=== PATIENT | male | born 1950 | race African-American/Black ===

== ENCOUNTER 2020-08-31 13:59 | Outpatient (REF) | payer OTHER, SELFPAY ==
[2020-08-31 15:04] LABS: Basophils Percent Auto 0.1 % (0-2); Eosinophils Percent Auto 0.1 % (0-4); Hematocrit 49.9 % (42-52); Hemoglobin 17.2 g/dl (14.0-18.0); Lymphocytes Absolute Auto 0.6 X10*3/uL (1.2-4.9); Lymphocytes Percent Auto 5.8 % (20-40); MANUAL DIFF FLAG SCAN; Mean Corpuscular HGB Conc 34.5 g/dl (31.0-36.0); Mean Corpuscular Hemoglobin 33.2 pg (27.0-33.0); Mean Corpuscular Volume 96.3 fL (80-98); Mean Platelet Volume 9.3 fL (9.4-12.4); Monocytes Absolute Auto 0.2 X10*3/uL (0.1-1.2); Monocytes Percent Auto 2.1 % (2-11); Neutrophils Absolute Auto 8.8 X10*3/uL (2.0-8.3); Neutrophils Percent Auto 90.9 % (45-73); Platelet Count 279 X10*3/uL (160-400); Red Blood Count 5.18 X10*6/uL (4.60-5.80); SCAN SMEAR FLAG 1; White Blood Count 9.7 X10*3/uL (4.8-10.8)
[2020-08-31 15:25] LABS: SLIDE REVIEW VERIFIED
[2020-08-31 15:33] LABS: Alanine Aminotransferase 32 U/L (0-40); Albumin Level 4.1 g/dL (3.5-5.0); Alkaline Phosphatase 121 U/L (39-117); Aspartate Amino Transferase 32 U/L (5-37); Bilirubin Direct 0.2 mg/dL (0.0-0.5); Bilirubin Total 0.6 mg/dL (0.0-1.0); Lipase 44 U/L (8-78); Total Protein 6.7 g/dL (6.5-8.0)
[2020-09-06 13:53] LABS: 6-TGN <50
[2020-09-06 13:54] LABS: 6-MMPN <500
== END 2020-08-31 14:00 | disposition home or self-care (01) ==
LOC: HO.LAB 13:59
PROVIDERS: PCP Physician Assistant Medical; Visit Provider Internal Medicine Gastroenterology
DX: K50.10 Crohn's disease of large intestine without complications (principal)
CPT/HCPCS: 36415; 80076; 83690; 85025

== ENCOUNTER 2021-08-11 14:35 | Emergency (ER) | payer OTHER, SELFPAY ==
--- NOTE | ~2021-08-11 | XR_ITS ---
EXAMINATION: XR CHEST CLINICAL INFORMATION: Hemoptysis COMPARISON: None TECHNIQUE: 2 views of the chest were obtained. FINDINGS: The heart does not appear enlarged. The thoracic aorta is tortuous. Hilar and mediastinal contours are otherwise unremarkable. There are increased markings in the right middle lobe suggestive of a pneumonia. There are postsurgical changes to the left hemithorax. There is question of a 4 mm nodule at the right lung base overlying the right anterior seventh and posterior ninth ribs. The lungs are otherwise clear. There is no pleural effusion or pneumothorax. There are degenerative changes of the spine. There are posttraumatic or postsurgical changes to the left posterior upper ribs. XR/XR chest 2V IMPRESSION: Increased markings in the right middle lobe probably representing pneumonia. Follow-up chest x-ray following treatment recommended. If there are no symptoms to suggest infection or x-ray finding fails to resolve, chest CT scan with IV contrast would be recommended. Question 4 mm right base pulmonary nodule. Postsurgical changes to the left hemithorax.
[2021-08-11 15:40] VITALS: BP 159/100; PULSE 94; RESP 20; TEMP 36.7; O2SAT 97; BMI 26.6
[2021-08-11 16:00] LABS: MANUAL DIFF FLAG NO
[2021-08-11 16:11] LABS: Basophils Percent Auto 0.1 % (0-2); Eosinophils Absolute Auto 0.1 X10*3/uL (0.0-0.4); Eosinophils Percent Auto 1.9 % (0-4); Hematocrit 37.1 % (42.0-52.0); Hemoglobin 13.2 g/dl (14.0-18.0); Imm Gran Abs Auto 0.02 X10*3/uL (0.00-0.03); Imm Gran Pct Auto 0.3 % (0.0-0.4); Lymphocytes Absolute Auto 2.1 X10*3/uL (1.2-4.9); Lymphocytes Percent Auto 31.5 % (20-40); Mean Corpuscular HGB Conc 35.6 g/dl (31.0-36.0); Mean Corpuscular Hemoglobin 34.4 pg (27.0-33.0); Mean Corpuscular Volume 96.6 fL (80.0-98.0); Mean Platelet Volume 9.5 fL (9.4-12.4); Monocytes Absolute Auto 0.4 X10*3/uL (0.1-1.2); Neutrophils Percent Auto 60.2 % (45-73); Platelet Count 347 X10*3/uL (160-400); Red Blood Count 3.84 X10*6/uL (4.60-5.80); Red Cell Distribution Width 13.3 % (11.0-16.0); White Blood Count 6.7 X10*3/uL (4.8-10.8)
[2021-08-11 16:20] LABS: Alanine Aminotransferase 17 U/L (0-40); Albumin Level 4.1 g/dL (3.5-5.0); Alkaline Phosphatase 93 U/L (39-117); Anion Gap 9 (12-20); Aspartate Amino Transferase 24 U/L (5-37); Bilirubin Total 0.4 mg/dL (0.0-1.0); Blood Urea Nitrogen 11 mg/dL (9-16); Calcium 9.8 mg/dL (8.4-10.2); Carbon Dioxide 28 mmol/L (22-29); Chloride 109 mmol/L (96-108); Creatinine Clr Calc Pharmacy 69.5; Estimated Glomerular Filt Rate > 60; Glucose Random 121 mg/dL (60-115); Potassium 4.3 mmol/L (3.3-5.1); Sodium 142 mmol/L (135-145); Total Protein 6.6 g/dL (6.5-8.0)
== END 2021-08-11 18:17 | disposition left against medical advice (07) ==
PROVIDERS: Emergency Provider Emergency Medicine; PCP Physician Assistant Medical
DX: R10.9 Unspecified abdominal pain (principal); R04.2 Hemoptysis; R05.9 Cough, unspecified
CPT/HCPCS: 36415; 71046; 80053; 85025; 99282; 99283

== ENCOUNTER 2021-08-12 13:04 | Emergency (ER) | payer OTHER, SELFPAY ==
[2021-08-12 14:02] VITALS: BP 143/87; PULSE 92; RESP 18; TEMP 36.6; O2SAT 100; BMI 26.6
--- NOTE | 2021-08-12 15:04 | ED.GENADULT ---
HPI - General Adult General Chief complaint: General Medical Stated complaint: upper abd pain Time Seen by Provider: 08/12/21 15:03 Source: patient and family (mother) Mode of arrival: ambulatory Limitations: no limitations History of Present Illness HPI narrative: Patient is a 70 year old male presenting to the emergency department today with a cough and upper back pain. Patient states that for the last few days, he has had a cough. Patient states that he was seen yesterday, and left before he got any of his results. Patient denies any dizziness, lightheadedness, abdominal pain, nausea, vomiting, fever, chills, blurry vision, double vision, loss of vision, chest pain, difficulty breathing, shortness of breath, back pain, night sweats, pain with urination, increased urinary frequency, increased urinary urgency, blood in his urine or stool, syncope or a near syncopal episode, recent trauma or falls, bowel incontinence, bladder incontinence, bowel retention, bladder retention, or any other complaints at this time. Patient states that he has a history of pneumonia and had a lobectomy of the left side. Onset (ago): day(s) Related Data Previous Rx's Medication Instructions Recorded amoxicillin 875 mg-potassium 1 tab PO BID 5 Days #10 tab 08/12/21 clavulanate 125 mg tablet azithromycin 250 mg tablet See Rx Instructions .ROUTE 08/12/21 .COMPLEX #6 tab Allergies Allergy/AdvReac Type Severity Reaction Status Date / Time Iodinated Contrast Media Allergy Hives Verified 08/12/21 14:11 [IV Contrast Dye] Review of Systems Constitutional: Constitutional: Reports no additional constitutional complaints, Denies chills, Denies fever(s) and Denies night sweats Eyes: Eyes: Reports no additional eye complaints, Denies blurry vision, Denies change in vision, Denies diplopia, Denies eye discharge, Denies loss of vision and Denies eye pain ENT: Denies dizziness Cardiovascular: Cardiovascular: Reports no additional cardiovascular complaints, Denies chest pain, Denies lightheadedness, Denies Loss of Consciousness and Denies dyspnea Respiratory: Respiratory: Reports no additional respiratory complaints, Reports cough and Denies dyspnea Gastrointestinal: Gastrointestinal: Reports no additional gastrointestinal complaints, Denies abdominal pain, Denies melena, Denies hematochezia, Denies change in bowel habits and Denies change in stool character Genitourinary: Genitourinary: Reports no additional male genitourinary complaints, Denies hematuria, Denies oliguria, Denies difficulty urinating, Denies dysuria, Denies urinary frequency, Denies urinary hesitancy, Denies urinary incontinence and Denies urinary urgency Musculoskeletal: Musculoskeletal: Reports no additional musculoskeletal complaints, Denies numbness and Denies tingling Neurologic: Denies dizziness, Denies loss of vision, Denies numbness and Denies tingling Psychiatric: Psychiatric: Reports no additional psychiatric complaints Endocrine: Endocrine: Reports no additional endocrine complaints Hematologic/Lymphatic: Hematologic/Lymphatic: Reports no additional hematologic/lymphatic complaints Allergic/Immunologic: Allergic/Immunologic: Reports no additional allergic/immunologic complaints [facility] Past Medical History Attestation statement: The following information was validated with the patient. Source: old records reviewed Medical History Crohn disease HTN (hypertension) Surgical History H/O lumpectomy Social History Social History Alcohol intake: current Alcohol intake frequency: holidays/special occasions only Patient Tobacco Use Status: Current everyday Tobacco user Use of substances other than those prescribed or required for medical reasons: No Advance Directives: No Advance Directives Information Provided: No Physical Exam ED Vital Signs: Vital Signs - 24 hr 08/12/21 14:02 08/12/21 15:17 Temperature 97.9 F 98.4 F Pulse Rate 92 96 Respiratory Rate 18 17 Blood Pressure 143/87 H 156/96 H Pulse Oximetry 100 98 BMI result Body Mass Index 26.6 Const General: cooperative, no acute distress, alert and awake Nutritional Appearance: well nourished Orientation/consciousness: patient oriented x3 Limitations: no limitations HENMT Head: Yes normal to inspection and Yes atraumatic Ears: hearing grossly normal bilaterally and external ears normal General nose exam: Normal external nose present, no nasal discharge noted and no epistaxis Face and sinus: Yes normal facial exam, No abrasion and No laceration Mouth: Normal oral and palatal mucosa present, no drooling and no muffled voice Eyes General: appearance normal, both eyes and all related structures Periorbital: periorbital findings normal Eyelids: Yes eyelids normal Conjunctivae: conjunctivae normal Pupils: Equal, round and reactive pupils present EOM: EOMs intact bilaterally Neck Neck: Yes normal visual inspection, Yes full ROM and Yes no lymphadenopathy Chest Chest palpation & inspection: normal inspection of the chest Resp Effort & Inspection: normal respiratory effort, able to speak in complete sentences and Actively coughing Quality: productive Cardio Rate: regular rate Rhythm: regular rhythm GI Inspection: Yes normal to inspection Neuro General: patient oriented x3 and moves all extremities Cranial nerves: Yes Equal, round and reactive pupils present Cognition (Neuro): normal cognition Motor exam (neuro): 5/5 motor strength present throughout Sensory Exam: Normal double simultaneous stimulation for sensation Coordination: [id number] test normal Extrem General: Yes normal to inspection, Yes full ROM and Yes capillary refill normal Psych Appearance: grossly normal Mental Status: mental status grossly normal Affect: normal affect Attitude: cooperative Thought process: Normal thought process present Thought content: Normal thought content present Insight: Good insight present (Psych) Medical Decision Making MDM Narrative Medical decision making narrative: Patient is a 70 year old male presenting to the emergency department today with a cough. Patient's physical exam was unremarkable. Patient's chest x-ray showed an acute right sided pneumonia. I explained my physical exam findings as well as all test results to the patient and the patient's mother. I answered all questions asked by the patient and the patient's mother. Patient prescribed Azithromycin and augmentin as recommended by most updated guidelines. I stressed the importance of the patient taking his medication as prescribed. I stressed the importance of the patient following up with his primary care provider. I stressed the importance of the patient returning to the emergency department immediately if his symptoms were to worsen or if he were to develop any dizziness, shortness of breath, difficulty breathing, chest pain, blurry vision, loss of vision, nausea, vomiting, abdominal pain, fever, chills, back pain, or any other complaints. Patient and the patient's mother verbalized agreement and understanding with this treatment plan and discharge. Differential Diagnosis Differential Diagnosis: Pneumonia, viral illness, cough Medical Records Medical records reviewed: Yes I reviewed the patient's medical records. Imaging Data Chest x-ray: Attestation: I personally reviewed and interpreted this imaging study as follows: Radiologist's impression: EXAMINATION: XR CHEST CLINICAL INFORMATION: Hemoptysis COMPARISON: None TECHNIQUE: 2 views of the chest were obtained. FINDINGS: The heart does not appear enlarged. The thoracic aorta is tortuous. Hilar and mediastinal contours are otherwise unremarkable. There are increased markings in the right middle lobe suggestive of a pneumonia. There are postsurgical changes to the left hemithorax. There is question of a 4 mm nodule at the right lung base overlying the right anterior seventh and posterior ninth ribs. The lungs are otherwise clear. There is no pleural effusion or pneumothorax. There are degenerative changes of the spine. There are posttraumatic or postsurgical changes to the left posterior upper ribs. XR/XR chest 2V IMPRESSION: Increased markings in the right middle lobe probably representing pneumonia. Follow-up chest x-ray following treatment recommended. If there are no symptoms to suggest infection or x-ray finding fails to resolve, chest CT scan with IV contrast would be recommended. Question 4 mm right base pulmonary nodule. Postsurgical changes to the left hemithorax. Dictated By: Sunshine Hernández MD Signed By: Electronically signed by Sunshine Hernández MD 08/11/21 6119 Discharge Plan Discharge Clinical Impression: Community acquired pneumonia Patient Disposition: Home, Self-Care Instructions: Community Acquired Pneumonia (DC) Prescriptions: New amoxicillin-pot clavulanate 875-125 mg tablet 1 tab PO BID 5 Days Qty: 10 0RF azithromycin 250 mg tablet See Rx Instructions .ROUTE .COMPLEX Qty: 6 0RF Rx Instructions: For 250 mg dose pack: take 500 mg today (day 1), then 250 mg for 4 days (days 2-5) Interventions: ED Discharge Assessment Last Done: 08/12/21 15:34 Discharge Date/Time: 08/12/21 15:42 Print Language: Vietnamese
[2021-08-12 15:17] VITALS: BP 156/96; PULSE 96; RESP 17; TEMP 36.9; O2SAT 98
== END 2021-08-12 15:42 | disposition home or self-care (01) ==
PROVIDERS: Emergency Provider Emergency Medicine Emergency Medical Services; PCP Physician Assistant Medical
DX: J18.9 Pneumonia, unspecified organism (principal); I10 Essential (primary) hypertension; F17.200 Nicotine dependence, unspecified, uncomplicated
CPT/HCPCS: 99283; 99284

== ENCOUNTER 2022-05-22 09:26 | Day surgery (SDC) | payer OTHER, SELFPAY ==
--- NOTE | 2022-05-21 13:43 | HO.ANESPROP2 ---
Documented by User: Nenita Fuentes NP 05/21/22 13:44 HPI - Anesthesia Eval Consult details Narrative: 71yo M for Colonoscopy [facility] Past Medical History Medical History (Updated 05/21/22 @ 14:20 by Laura Bustamante RN) Back pain COPD (chronic obstructive pulmonary disease) Crohn disease CVA (cerebral vascular accident) Depression Emphysema lung HTN (hypertension) Hypogonadism Plantar fibromatosis Surgical History Surgical History (Updated 05/21/22 @ 14:22 by Laura Bustamante RN) H/O lumpectomy History of lung surgery Hx of colonoscopy Social History Social History Alcohol intake: current Alcohol intake frequency: former alcohol drinker Patient Tobacco Use Status: Former Tobacco user Quit Date: 03/2022 Tobacco use type: Cigarette Use of substances other than those prescribed or required for medical reasons: Yes Substance Use Frequency: Daily Are you DNR?: No Advance Directives: No Advance Directives Information Provided: Yes Meds Allergies Allergy/AdvReac Type Severity Reaction Status Date / Time Iodinated Contrast Media Allergy Hives Verified 08/12/21 14:11 [IV Contrast Dye] Home Medications Medication Instructions Recorded Confirmed Last Taken Type Creon 05/21/22 Unknown History Symbicort 05/21/22 Unknown History adalimumab 40 mg/0.8 mL 40 mg subcut Q2W 05/21/22 05/21/22 Unknown History subcutaneous syringe kit (Humira) amlodipine 5 mg-benazepril 10 mg 1 cap PO DAILY 05/21/22 05/21/22 Unknown History capsule aspirin 81 mg tablet,delayed 81 mg PO DAILY 05/21/22 05/21/22 Unknown History release atorvastatin 80 mg tablet 80 mg PO DAILY 05/21/22 05/21/22 Unknown History clopidogrel 75 mg tablet 75 mg PO DAILY 05/21/22 05/21/22 Unknown History fluticasone propionate 93 1 spray intranasal BID 05/21/22 05/21/22 Unknown History mcg/actuation breath activated aerosol folic acid 1 mg tablet 1 mg PO DAILY 05/21/22 05/21/22 Unknown History multivitamin,jx-thkd-Hp-FA-min tab 05/21/22 Unknown History sildenafil 50 mg tablet 50 mg PO DAILY PRN Erectile 05/21/22 05/21/22 Unknown History Dysfunction thiamine HCl (vitamin B1) 100 mg 100 mg PO DAILY 05/21/22 05/21/22 Unknown History tablet (Vitamin B-1) Exam Exam Date and Time: May 21, 2022 1343 Assessment and Plan Assessment Anesthesia Assessment: Chart Reviewed Documented by User: Cecil Vang MD 05/22/22 16:34 HPI - Anesthesia Eval Consult details Narrative: 71yo M for Colonoscopy history of CVA with very slight right sided weakness PMFSH Past Medical History Medical History (Updated 05/21/22 @ 14:20 by Laura Bustamante, RN) Back pain COPD (chronic obstructive pulmonary disease) Crohn disease CVA (cerebral vascular accident) Depression Emphysema lung HTN (hypertension) Hypogonadism Plantar fibromatosis Functional capacity: independent ambulation Family History Family history of problems with anesthesia: No Surgical History Surgical History (Updated 05/21/22 @ 14:22 by Laura Bustamante, RN) H/O lumpectomy History of lung surgery Hx of colonoscopy History of Problems with Anesthesia: No Social History Social History Alcohol intake: current Alcohol intake frequency: former alcohol drinker Patient Tobacco Use Status: Former Tobacco user Quit Date: 03/2022 Tobacco use type: Cigarette Use of substances other than those prescribed or required for medical reasons: Yes Substance Use Frequency: Daily Are you DNR?: No Advance Directives: No Advance Directives Information Provided: Yes Meds Allergies Allergy/AdvReac Type Severity Reaction Status Date / Time Iodinated Contrast Media Allergy Hives Verified 08/12/21 14:11 [IV Contrast Dye] Home Medications Medication Instructions Recorded Confirmed Last Taken Type Creon 05/21/22 Unknown History Symbicort 05/21/22 Unknown History adalimumab 40 mg/0.8 mL 40 mg subcut Q2W 05/21/22 05/21/22 Unknown History subcutaneous syringe kit (Humira) amlodipine 5 mg-benazepril 10 mg 1 cap PO DAILY 05/21/22 05/21/22 Unknown History capsule aspirin 81 mg tablet,delayed 81 mg PO DAILY 05/21/22 05/21/22 Unknown History release atorvastatin 80 mg tablet 80 mg PO DAILY 05/21/22 05/21/22 Unknown History clopidogrel 75 mg tablet 75 mg PO DAILY 05/21/22 05/21/22 Unknown History fluticasone propionate 93 1 spray intranasal BID 05/21/22 05/21/22 Unknown History mcg/actuation breath activated aerosol folic acid 1 mg tablet 1 mg PO DAILY 05/21/22 05/21/22 Unknown History multivitamin,bo-ayrk-Nf-FA-min tab 05/21/22 Unknown History sildenafil 50 mg tablet 50 mg PO DAILY PRN Erectile 05/21/22 05/21/22 Unknown History Dysfunction thiamine HCl (vitamin B1) 100 mg 100 mg PO DAILY 05/21/22 05/21/22 Unknown History tablet (Vitamin B-1) Exam Airway Mallampati Class: IV TM Dist: >3cm Neck ROM: Full Partial: Lower Loose/Missing/Broken Teeth: Yes Heart: S1,S2 Lungs: b/l breath sounds Assessment and Plan Assessment Anesthesia Assessment: Anesthesia Plan Discussed Final Anesthetic Review Family History of Problems with Anesthesia: No History of Problems with Anesthesia: No NPO: Yes ASA Class: III Final Preanesthetic Review: Meds/Allgs Chart Reviewed, Consent Obtained/Reviewed and Anes Risks/Benef Reviewed Patient Risk: Intermediate Procedure Risk: Intermediate Anesthetic Plan Anesthetic Plan: MAC: Disposition: Standard PACU
[2022-05-22 09:54] VITALS: BP 131/95; PULSE 109; RESP 18; TEMP 36.8; O2SAT 97; BMI 25.8
[2022-05-22] MEDS: Lactated Ringers 1,000 ML 100 ML IVCONT (10:06)
--- NOTE | 2022-05-22 10:38 | MHC.SHP ---
Pre-Procedural Eval Section A Date of Service: 05/22/22 The patient is an INPATIENT: No Changes since office visit: No Cold of Flu in the past 2 weeks, No New Medical Problems, No Changes in Medication and No Patient answered all questions The History & Physical has been completed within 30 days and I have reviewed it.: Yes Section B Chief Complaint: crohns Allergies: Allergies Allergy/AdvReac Type Severity Reaction Status Date / Time Iodinated Contrast Media Allergy Hives Verified 08/12/21 14:11 [IV Contrast Dye] Plan I have reviewed the history and physical and performed a pertinent physical examination on my patient. No changes have occurred unless specified.
--- NOTE | 2022-05-22 11:10 | P.BOP_ITS ---
Brief Operative Note Date of Service: 05/22/22 Pre-op diagnosis: abnl ct crohns colitis Post-op diagnosis: same Procedure: colonoscopy Surgeon: Ismael Camilo Anesthesia: MAC Was an Splitting Machine Operator used for this Procedure?: No Estimated blood loss (mL): 5 Pathology: other Condition: stable Disposition: PACU
[2022-05-22 11:19] VITALS: BP 118/89; PULSE 98; RESP 17; TEMP 36.2; O2SAT 97
[2022-05-22 11:34] VITALS: BP 120/85; PULSE 98; RESP 18; TEMP 36.4; O2SAT 98
--- NOTE | 2022-05-22 11:44 | OP_ITS ---
SURGEON: Ismael Camilo MD INDICATIONS: Crohn disease and abnormal CT scan of the colon. PREOPERATIVE DIAGNOSIS: POSTOPERATIVE DIAGNOSIS: PROCEDURE PERFORMED: Colonoscopy to the terminal ileum with biopsy. ESTIMATED BLOOD LOSS: COMPLICATIONS: ANESTHESIA: Medications; monitored anesthesia care. ASSISTANTS: SPECIMENS: DESCRIPTION OF PROCEDURE: History and physical performed. The risks and benefits of the procedure were explained to the patient. Informed consent was obtained. The procedure was performed on 05/22/2022. A digital rectal exam was performed and was found to be normal. The Olympus pediatric videocolonoscope was introduced into the rectum and advanced to the cecum without difficulty. The cecum was identified by transillumination, palpation, and identification of ileocecal valve. Examination was performed. The scope was removed. He tolerated the procedure well and was taken to recovery in stable condition. FINDINGS: The terminal ileum was examined and appeared normal. This was explored for approximately 10 cm. Biopsies were obtained. There was no evidence of Crohn disease involving the terminal ileum. The visualized colonic mucosa was within normal limits. There was some stool coating mucosa in the right colon limiting the sensitivity examination for detection of small polyps. This was washed and suctioned. Two polyps were identified at about 75 cm. Both measured less than 5 mm and removed with biopsy forceps. There was no evidence of active Crohn disease. Biopsies were obtained from throughout the colon and approximately every 10 cm in all 4 quadrants. Retroflexed examination showed large internal hemorrhoids. IMPRESSION: 1. Colon polyps. 2. Crohn disease, large intestine. RECOMMENDATION: Follow up the biopsy results. MD CRYSTAL Cui/BRADLYL / [id number]
== END 2022-05-22 12:05 | disposition home or self-care (01) ==
PROVIDERS: PCP Physician Assistant Medical; Visit Provider Internal Medicine Gastroenterology
PROC: 0DJD8ZZ Inspection of Lower Intestinal Tract, Via Natural or Artificial Opening Endoscopic (ICD-10-PCS; CPT 45378; principal; 2022-05-22 10:40)
DX: K50.10 Crohn's disease of large intestine without complications (principal); R93.3 Abnormal findings on diagnostic imaging of other parts of digestive tract; D12.6 Benign neoplasm of colon, unspecified; K63.5 Polyp of colon; K64.8 Other hemorrhoids; K86.1 Other chronic pancreatitis; I10 Essential (primary) hypertension; J43.9 Emphysema, unspecified; Z86.73 Personal history of transient ischemic attack (TIA), and cerebral infarction without residual deficits; Z79.82 Long term (current) use of aspirin; Z79.899 Other long term (current) drug therapy
CPT/HCPCS: 45380; 88305

== ENCOUNTER 2022-05-23 13:53 | Outpatient (REF) | payer OTHER, SELFPAY ==
--- NOTE | ~2022-05-23 | US_ITS ---
EXAMINATION: US RETROPERITONEAL COMPLETE (RENAL) CLINICAL INFORMATION: Cyst of kidney. COMPARISON: MRI abdomen 02/20/2017. Ultrasound abdomen 01/03/2017. TECHNIQUE: Real-time imaging of the kidneys and bladder. FINDINGS: RIGHT KIDNEY: 11.3 x 5.7 x 4.9 cm (SAG x AP x TRV). The kidney is normal in size, contour, and echogenicity. Renal cortical thickness is normal. No calculi or focal parenchymal lesions. No hydronephrosis. LEFT KIDNEY: 11.7 x 6.0 x 4.6 cm (SAG x AP x TRV). The kidney is normal in size, contour, and echogenicity. Renal cortical thickness is normal. No renal calculi or hydronephrosis. An anechoic cyst in the lower pole measuring 1.8 x 1.6 1.8 cm and mid pole measuring 3.5 x 3.0 x 3.8 cm. BLADDER: Well distended. Bilateral ureteral jets are demonstrated. Prevoid bladder volume is 305.5 mL. Postvoid bladder volume is 7.4 mL. There are echogenic foci seen in the bladder. Prostate volume 23.7 mL. US/US retroperitoneal comp IMPRESSION: There are several cysts in the left kidney. No echogenic renal calculi or hydronephrosis. Tiny postvoid residual bladder volume measuring 7.4 mL. There are echogenic foci seen in the bladder.
== END 2022-05-23 13:54 | disposition home or self-care (01) ==
LOC: HO.US 13:53
PROVIDERS: Visit Provider Physician Assistant Medical
DX: N28.1 Cyst of kidney, acquired (principal)
CPT/HCPCS: 76770

== ENCOUNTER 2022-05-28 08:47 | Outpatient (REF) | payer OTHER, SELFPAY ==
--- NOTE | ~2022-05-28 | US_ITS ---
EXAMINATION: US ABDOMEN COMPLETE CLINICAL INFORMATION: Lower abdominal pain. COMPARISON: Ultrasound retroperitoneal complete (renal) 05/23/2022. MRI abdomen without contrast 02/20/2017. TECHNIQUE: Real-time imaging of the abdominal viscera. FINDINGS: PANCREAS: Normal. ABDOMINAL AORTA: The proximal, mid, and distal segments are normal in caliber. INFERIOR VENA CAVA: Visualized portions are normal. LIVER: The liver is normal in size. The liver contour is normal. Increased echogenicity. No focal hepatic lesion. There is no intrahepatic biliary duct dilatation seen. GALLBLADDER: Normal. The gallbladder is physiologically distended without evidence of stones, sludge, polyps, wall thickening or pericholecystic fluid. COMMON BILE DUCT: Normal in caliber measuring 0.4 cm in diameter. RIGHT KIDNEY: There is a 0.8 cm simple cyst in the medial interpolar region for which no imaging follow-up is recommended. There are multiple echogenic foci without shadowing nor twinkle artifacts, possibly representing vascular calcifications. No hydronephrosis or renal calculi. The kidney measures 11.5 cm in maximum dimension. LEFT KIDNEY: There is a 1.8 cm cyst in the mid to lower pole with thin internal septations. There is an additional 3.4 cm cyst in the midpole that is simple in appearance. Similar when compared to the right side there are multiple echogenic foci without shadowing nor twinkle artifact, possibly representing vascular calcifications. No hydronephrosis or renal calculi. The kidney measures 11.6 cm in maximum dimension. SPLEEN: Normal. The spleen measures 8.20 cm in maximum dimension. FREE FLUID: None. US/US abdomen complete IMPRESSION: 1. Nonspecific increased echogenicity of the liver parenchyma, which could be seen in the setting of hepatic steatosis or hepatocellular disease. Correlate with liver function tests. 2. There is a 1.8 cm cyst in the mid to lower pole of the left kidney with thin internal septations. 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 3. Multiple echogenic foci in both kidneys are nonspecific and could represent vascular calcifications. Attention on follow-up. 4. No hydronephrosis.
== END 2022-05-28 08:48 | disposition home or self-care (01) ==
LOC: HO.HMGCX 08:47
PROVIDERS: PCP Physician Assistant Medical; Visit Provider Physician Assistant Medical
DX: R10.30 Lower abdominal pain, unspecified (principal)
CPT/HCPCS: 76700

== ENCOUNTER 2025-05-05 12:39 | Day surgery (SDC) | payer OTHER, SELFPAY ==
--- NOTE | 2025-05-03 13:31 | HO.ANESPROP2 ---
Documented by User: Nenita Fuentes NP 05/03/25 13:32 HPI - Anesthesia Eval Consult details Narrative: 74yo M for Colonoscopy Plavix - hx cva PMFSH Past Medical History Medical History Latent tuberculosis Pancreatitis TIA (transient ischemic attack) (~2020) Pneumonia Opiate dependence Chronic sinusitis Hyperhidrosis CVA (cerebral vascular accident) Back pain Depression Plantar fibromatosis COPD (chronic obstructive pulmonary disease) Hypogonadism Emphysema lung Crohn disease HTN (hypertension) Family History Family history of problems with anesthesia: No Surgical History Surgical History Hx of colonoscopy History of lung surgery H/O lumpectomy History of Problems with Anesthesia: No Social History Social History Alcohol intake: current Alcohol intake frequency: former alcohol drinker Patient Tobacco Use Status: Former Tobacco user Tobacco use type: Cigarette Advance Directives: No Advance Directives Information Provided: Yes Meds Allergies Allergy/AdvReac Type Severity Reaction Status Date / Time Iodinated Contrast Media (IV Allergy Hives Verified 05/05/25 13:02 Contrast Dye) Home Medications ?Medication ?Instructions ?Recorded ?Confirmed ?Last Taken ?Type Symbicort inhalation DAILY 05/21/22 Unknown History atorvastatin 80 mg tablet 80 mg PO DAILY 05/21/22 05/03/25 Unknown History fluticasone propionate 93 1 spray intranasal BID PRN Allergy 05/21/22 05/03/25 Unknown History mcg/actuation breath activated Symptoms aerosol sildenafil 50 mg tablet 50 mg PO DAILY PRN Erectile 05/21/22 05/03/25 Unknown History Dysfunction adalimumab 40 mg/0.8 mL 40 mg subcut Q2W 05/03/25 05/03/25 Unknown History subcutaneous syringe kit (Humira) morphine 30 mg immediate release 30 mg PO TID 05/05/25 05/05/25 Unknown History tablet oxycodone 5 mg tablet 5 mg PO TID PRN Pain 05/05/25 05/05/25 Unknown History Assessment and Plan Assessment Anesthesia Assessment: Chart Reviewed Final Anesthetic Review Family History of Problems with Anesthesia: No History of Problems with Anesthesia: No Documented by User: Sunshine Santana MD 05/05/25 13:33 [facility] Past Medical History Medical History Latent tuberculosis Pancreatitis TIA (transient ischemic attack) (~2020) Pneumonia Opiate dependence Chronic sinusitis Hyperhidrosis CVA (cerebral vascular accident) Back pain Depression Plantar fibromatosis COPD (chronic obstructive pulmonary disease) Hypogonadism Emphysema lung Crohn disease HTN (hypertension) Surgical History Surgical History Hx of colonoscopy History of lung surgery H/O lumpectomy Social History Social History Alcohol intake: current Alcohol intake frequency: former alcohol drinker Patient Tobacco Use Status: Former Tobacco user Tobacco use type: Cigarette Advance Directives: No Advance Directives Information Provided: Yes Meds Allergies Allergy/AdvReac Type Severity Reaction Status Date / Time Iodinated Contrast Media (IV Allergy Hives Verified 05/05/25 13:02 Contrast Dye) Home Medications ?Medication ?Instructions ?Recorded ?Confirmed ?Last Taken ?Type Symbicort inhalation DAILY 05/21/22 Unknown History atorvastatin 80 mg tablet 80 mg PO DAILY 05/21/22 05/03/25 Unknown History fluticasone propionate 93 1 spray intranasal BID PRN Allergy 05/21/22 05/03/25 Unknown History mcg/actuation breath activated Symptoms aerosol sildenafil 50 mg tablet 50 mg PO DAILY PRN Erectile 05/21/22 05/03/25 Unknown History Dysfunction adalimumab 40 mg/0.8 mL 40 mg subcut Q2W 05/03/25 05/03/25 Unknown History subcutaneous syringe kit (Humira) morphine 30 mg immediate release 30 mg PO TID 05/05/25 05/05/25 Unknown History tablet oxycodone 5 mg tablet 5 mg PO TID PRN Pain 05/05/25 05/05/25 Unknown History Exam Airway Mallampati Class: III TM Dist: >3cm Neck ROM: Full Denture: Upper Partial: Lower Loose/Missing/Broken Teeth: Yes, Upper and Lower Heart: RRR Lungs: distant but clear Assessment and Plan Assessment Anesthesia Assessment: Anesthesia Plan Discussed Final Anesthetic Review NPO: Yes ASA Class: III Final Preanesthetic Review: Meds/Allgs Chart Reviewed, Consent Obtained/Reviewed and Anes Risks/Benef Reviewed Patient Risk: Intermediate Procedure Risk: Low Anesthetic Plan Anesthetic Plan: MAC: Disposition: Standard PACU
--- OUTSIDE RECORDS SUMMARY | 2025-05-03 14:15 | XMS_ITS | Encounter Summary ---
Author Organization [facility] Address [address] [facility] [address] [place] [address] Phone Care Team Providers Care Patch Press Operator Name Role Phone Yosi Handy Primary Care Provider +1- [phone] Encounter Details Date Type Department Care Team (Late st Contact Info) Description 01/10/2021 Procedure Pass [facility], Ct Scan - [address] [address] Social History Tobacco Use Types Packs/Day Years Used Date Smoking Tobacco: Former Cigarettes 1 45.9 0 07/01/1969 - 05/31/2015 Smokeless Tobacco: Never Alcohol Use Standard Drinks/Week Comments Yes 30 (1 standard drink = 0.6 oz pu re alcohol) Sex and Gender Information Value Date Recorded Sex Assigned at Male 06/03/2019 3:31 PM EST Legal Sex Male 3:12 PM EST Gender Identity Male 06/03/2019 3:31 PM EST Sexual Orientation Straight 06/03/2019 3: 31 PM EST documented as of this encounter Functional Status * Calculated C-SSRS Risk Score (Lifetime/Recent) Answer Date of Assessment Author No Risk Indicated 01/10/2021 2:18 PM EDT Efren Thompson CNP * [place] Suicide Severity Rating Scale (Screener/Recent Self-Report) Question Answer Date of Assessment Author 1. Wish to be (Past 1 Month) No 01/10/2021 2:18 PM EDT Efren Thompson CNP 2. Non-Specific Active Suicidal Thoughts (Past 1 Month) No 01/10/2021 2:18 PM EDT Efren Thompson CNP 6. Suicidal Behavior (Lifetime) No 01/10/2021 2:18 PM EDT Efren Thompson, MOO documented as of this encounter Plan of Treatment Not on file documented as of this encounter Visit Diagnoses Not on filedocumented in this encounter Care Teams Patch Press Operator Relationship Specialty Start Date End Date Yosi Handy PA [address] [place] [id number] PCP - General 06/03/19 documented as of this encounter Additional Source Comments The information contained in this document represents components of the legal health record. It is not the complete legal health record.[facility]
--- OUTSIDE RECORDS SUMMARY | 2025-05-03 14:15 | XMS_ITS | Encounter Summary ---
Author Organization [employer] Address [address] [facility] [address], [place] [address] Care Team Providers Care Mounter Hand Name Role Phone Unavailable Primary Care Provider Unavailabl e Encounter Details Date Type Department Care Team (Latest Contact Info) Description 08/10/2019 Abstract [facility] CONVERSIONS Dental, Provider, DDS Social History Tobacco Use Types Packs/Day Years Used Date Smoking Tobacco: Never Assessed Sex and Gender Information Value Date Recorded Sex Assigned at Male 04/30/2022 10:16 AM EDT Legal Sex Male 10:16 AM EDT Gender Identity Male 04/30/2022 10:16 AM EDT Sexual Orientation Straight 04/30/2022 10 :16 AM EDT documented as of this encounter Plan of Treatment Upcoming Encounters Date Type Department Care Team (Late st Contact Info) Description 06/01/2025 1:30 PM EST Office Visit [facility] ADULT DENTAL [address] [place] [address] Win Dorman documented as of this encounter Visit Diagnoses Not on filedocumented in this encounter
--- OUTSIDE RECORDS SUMMARY | 2025-05-03 14:15 | XMS_ITS | Encounter Summary ---
Author Organization [employer] Address [address] [place] [address] [address] [address] Care Team Providers Care Building Carpenter Name Role Phone Unavailable Primary Care Provider Unavailabl e Encounter Details Date Type Department Care Team (Latest Contact Info) Description 01/06/2021 Abstract [facility] CONVERSIONS Dental, Provider, DDS Social History [...] Description 06/01/2025 1:30 PM EST Office Visit [facility] ADULT DENTAL [address] [place] [address] Win Dorman documented as of this encounter Visit Diagnoses Not on filedocumented in this encounter
--- OUTSIDE RECORDS SUMMARY | 2025-05-03 14:15 | XMS_ITS | Encounter Summary ---
Author Organization [employer] Address [address] [facility] [address], [place] [address] Care Team Providers Care Barking Machine Feeder Name Role Phone Unavailable Primary Care Provider Unavailabl e Encounter Details Date Type Department Care Team (Latest Contact Info) Description 07/04/2018 Abstract [facility] CONVERSIONS Dental, Provider, DDS Social History Tobacco [...] Description 06/01/2025 1:30 PM EST Office Visit [facility] ADULT D[facility] [address] [place] [address] Win Dorman documented as of this encounter Visit Diagnoses Not on filedocumented in this encounter
--- OUTSIDE RECORDS SUMMARY | 2025-05-03 14:15 | XMS_ITS | Encounter Summary ---
Author Organization [facility] Address [address] [facility] [address] [place] [address] Phone Care Team Providers Care Nut Sorter Name Role Phone Yosi Handy Primary Care Provider +1- [phone] Encounter Details Date Type Department Care Team (Late st Contact Info) Description 01/10/2021 Procedure Pass [facility] [address] [place] [address] Social History Tobacco Use Types Packs/Day Years [...] 2:18 PM EDT Efren Thompson CNP * [place] Suicide Severity Rating Scale (Screener/Recent Self-Report) Question [...] on filedocumented in this encounter Care Teams Nut Sorter Relationship Specialty Start Date End Date Yosi Handy PA [address] [place] [address] PCP - General 06/03/19 documented as of this encounter Additional Source Comments The information contained in this document represents components of the legal health record. It is not the complete legal health record.[facility]
--- OUTSIDE RECORDS SUMMARY | 2025-05-03 14:16 | XMS_ITS | Clinical Summary ---
Author Organization [facility] Address [address] [id number] Phone Care Team Providers Care Hair Cutter Name Role Phone Yosi Handy Primary Care Provider +1- [phone] Allergies No known active allergies Medications azaTHIOprine (IMURAN) 50 mg tablet Take 150 mg by mouth daily. Active carboxymethylce llulose (REFRESH PLUS) 0.5 % Dpet Place 1 drop into each eye 4 (four) times a day. Active cyanocobalamin, vitamin B-12, 250 MCG tablet Take 500 mcg by mouth 2 (two) times a day. Active doxepin (SINEQUAN) 10 MG capsule Take 20 mg by mouth nightly at bedtime. Active fluticasone propionate (FLONASE) 50 mcg/actuation nasal spray 1 spray by Nasal route 2 (two) times a day. Active testosterone cypionate (DEPO-TESTOTERO NE) 100 mg/mL injection Inject 300 mg into the muscle every 14 (fourteen) days. Active albuterol 90 mcg/actuation inhaler Inhale 2 puffs into the lungs every 4 (four) hours as needed for wheezing. Active atorvastatin (LIPITOR) 80 MG tablet Take 1 tablet (80 mg total) by mouth nightly at bedtime. 30 tablet 01/11/2021 Active clopidogrel (PLAVIX) 75 mg tablet Take 1 tablet (75 mg total) by mouth daily. ONLY 20 days, this is a one time only rx. 20 tablet 01/12/2021 Active aspirin 81 MG EC tablet Take 1 tablet (81 mg total) by mouth daily. 30 tablet 01/11/2021 Active amLODIPine (NORVASC) 5 MG tablet Take 1 tablet (5 mg total) by mouth daily. 30 tablet 01/11/2021 Active Active Problems Problem Noted Date Diagnosed Date TIA (transient ischemic attack) 01/10/2021 Assessment & Plan (01/10/2021 7:31 PM EDT): Patient presented to the emergency department with right hand weakness with a funny sensation in his right upper extremity along with right facial droop. U tox positive for cannabis and buprenorphine. Chest x-ray revealed no acute abnormality. CT head/CT angio reveals no acute intracranial hemorrhage, evolved large tentorial infarct or mass-effect. Mild asymmetrical hypodensity of the left cerebral white matter tracts, likely sequela of chronic small vessel disease, less likely demyelinating process or infarct. No significant vascular abnormality. Tele-Stroke consulted from the emergency department who recommended admission for further stroke work-up and loading with Plavix 300 mg and aspirin and continuing. -Continue aspirin 81 mg daily in conjunction with 75 mg of Plavix. Patient will need to be continued on this regimen for 21 days, will need to discuss with neurology after MRI resulted about which medication to discontinue after the 21 days -Continue Lipitor 80 mg -Obtain lipid panel -Obtain a hemoglobin A1c -Obtain CRP, ESR, and TSH levels -PT/OT -Speech and swallow evaluation -MRI brain -Ultrasound of the carotids -Echocardiogram -Allow for permissive hypertension for the first 24 hours or until the MRI is resulted. If SBP is > 180 then would give clonidine prn. Bullous emphysema 06/05/2019 Assessment & Plan (01/10/2021 7:25 PM EDT): Status post partial lung resection and treated for COPD on albuterol MDI which will be continued Assessment & Plan (06/05/2019 12:40 PM EST): [facility] I have offered him follow-up in our pulmonary office, for which he would need [facility]. If he comes see us, I would like to obtain prior PFT, chest CT, pulmonary and thoracic [facility]. Repeat PFT and a 6-minute distance walk would be indicated. For now, I would continue Symbicort at the time of discharge. The addition of Spiriva could be considered based on physiologic testing and clinical course. Again depending on PFT and 6-MDW, he may be a candidate for pulmonary rehab. We should ensure that he is up-to-date with influenza and pneumococcal vaccinations. Crohn's disease 06/04/2019 Assessment & Plan (01/10/2021 7:25 PM EDT): He states he was on balsalazide but he was taken off as he felt this was not working. He mentions he has been on Azathioprine and possible starting Humira, Continue Azathioprine 150mg po daily Assessment & Plan (06/05/2019 12:35 PM EST): I would consider restarting Imuran at the time of discharge. He will need follow-up with GI. Assessment & Plan (06/05/2019 7:13 PM EST): h/o Crohn's disease, followed by Dr. Moran in [place] No GI complaints at present --Holding azathioprine, but can restart at discharge assuming no new infectious issues Family History Medical History Relation Comments Diabetes Father Heart disease Father Anxiety disorder Mother Depression Mother Hyperlipidemia Mother Hypertension Mother Lung disease Mother Relation Status Comments Father Mother Social History Tobacco Use Types Packs/Day Years Used Date Smoking Tobacco: Former Cigarettes 1 45.9 0 07/01/1969 - 05/31/2015 Smokeless Tobacco: Never Tobacco Cessation:Counseling Given: Yes Alcohol Use Standard Drinks/Week Comments Yes 30 (1 standard drink = 0.6 oz pu re alcohol) Education Answer Date Recorded Are you interested in more education? Not on gaby e 10/26/2022 Are you concerned about learning? Not on file 10/26/2022 No 10/26/2022 No 10/26/2022 Digital Access Answer Date Recorded No 11/21/2022 No 11/21/2022 No 11/21/2022 Reliable internet access at home? Not on file 11/21/2022 Device with a working camera? Not on file Sex and Gender Information Value Date Recorded Sex Assigned at Male 06/03/2019 3:31 PM EST Legal Sex Male 3:12 PM EST Gender Identity Male 06/03/2019 3:31 PM EST Sexual Orientation Straight 06/03/2019 3: 31 PM EST Last Filed Vital Signs Vital Sign Reading Time Taken Comments Blood Pressure 149/88 01/11/2021 11:53 AM EDT Pulse 71 01/11/2021 11:53 AM EDT Temperature 36.6 C (97.9 F) 01/11/2021 11:53 AM EDT Respiratory Rate 18 01/11/2021 11:53 AM EDT Oxygen Saturation 97% 01/11/2021 11:53 AM EDT Inhaled Oxygen Concentration - - Weight 83.9 kg (185 lb) 01/10/2021 6:23 PM EDT Height 170.2 cm (5' 7 ) 01/10/2021 2:16 PM EDT Body Mass Index 28.98 01/10/2021 2:16 PM EDT Plan of Treatment Health Maintenance Due Date Last Done Comments Adult Td,Tdap Booster 1952 DEPRESSION SCREENING 1964 SMOKING Hx and SMOKELESS TOBACCO SCREENING 1965 HEPATITIS C SCREENING 1970 ZOSTER VACCINES (1 of 2) 09/09/1971 COLOGUARD 1997 COLONOSCOPY 1997 COLORECTAL CANCER SCREENING 1997 FIT TEST 1997 FOBT 1997 SIGMOIDOSCOPY 1997 VIRTUAL COLONOSCOPY 1997 RSV VACCINE (1 - Risk 50-74 years 1-dose series) 2002 ABDOMINAL AORTIC ANEURYSM (AAA) SCREENING 2017 ALKALINE PHOSPHATASE LEVEL 01/11/202201/11, 01/10/2021, 06/04/2019, Additional history exists CREATININE LEVEL 01/11/2022 01/11/2021, , 06/05/2019, Additional history exists INFLUENZA VACCINE (#1) 2025 2, 05/06/2019, 05/23/2018, Additional history exists COVID-19 VACCINE ( season) 2025 06/06/2021, 09/10/2020, 08/13/2020 LIPID PANEL 01/11/2026 01/11/2021 PNEUMOCOCCAL VACCINES (50+ years) Completed 05/23/2018, 08/01/2015 HEPATITIS A VACCINES Aged Out No long er eligible based on patient's age to complete this topic HIB VACCINES Aged Out No longer eligi ble based on patient's age to complete this topic MENINGOCOCCAL VACCINES (ACWY) Aged Out No longer eligible based on patient's age to complete this topic MENINGOCOCCAL VACCINES (B) Aged Out N o longer eligible based on patient's age to complete this topic Medical Devices Not on file Procedures Procedure Name Priority Date/Time Associated Diagnosis Comments LIPID PANEL Routine 01/11/2021 5:19 AM EDT COMPREHENSIVE METABOLIC PANEL (CMP) Routine 01/11/2021 5:19 AM EDT from Last 3 Months or Most Recently Relevant to Health Maintenance Results * (ABNORMAL) Comprehensive metabolic panel (01/11/2021 5:19 AM EDT) SODIUM 139 133 - 146 mmol/L [facility] POTASSIUM 3.6 3.3 - 5.1 mmol/L [facility] CHLORIDE 105 96 - 108 mmol/L [facility] CO2 24 21 - 35 mmol/L [facility] BUN 7 6 - 19 mg/dL [facility] CREATININE 0.60 0.5 - 1.5 mg/dL [facility] GLUCOSE 87 70 - 99 mg/dL [facility] ALBUMIN 3.5(L) 3.9 - 4.8 g/dL [facility] TOTAL PROTEIN 5.7(L) 6.5 - 8.0 g/dL [facility] CALCIUM 8.6 8.4 - 10.3 mg/dL [facility] ALKALINE PHOSPHATASE 78 39 - 117 U/L [facility] TOTAL BILIRUBIN 0.5 0.0 - 1.2 mg/dL [facility] AST 18 0 - 37 U/L [facility] ALT 11 0 - 40 U/L [facility] GLOBULIN 2.2 1 - 4.8 g/dL [facility] EGFR 103 >59 mL/min/1.7 3m2 [facility] Comment:Estimated glomerular filtration rate calculated using the CKD-EPI equation. ANION GAP 14 10 - 20 mmol/L [facility] Blood 01/11/2021 5:19 AM EDT 01/11/2021 6:50 AM EDT Perry Chavez PA-C LAB BLOOD BKR ORDERABLES Cynthia l Result Performing Organization Address [facility] [place]/[facility] Co de Phone Number [address] [address] * (ABNORMAL) Lipid panel (01/11/2021 5:19 AM EDT) HDL 52 mg/dL [facility] Comment: Interpretation <40 mg/dL: Low HDL cholesterol (major risk factor for CHD) Greater than or equal to 60 mg/dL: High HDL cholesterol ( negative risk factor for CHD) HDL - cholesterol is affected by a number of factors, e.g. smoking, excerise, hormones, sex and age. CHOLESTEROL 208 0 - 240 mg/dL [facility] TRIGLYCERIDES 111 30 - 160 mg/dL [facility] LDL 134(H) 50 - 129 mg/dL [facility] Comment: LDL levels in terms of risk for coronary heart disease: <100 mg/dL: Optimal 100-129 mg/dL: Near or above optimal 130-159 mg/dL: Borderline high 160-189 mg/dL: High >190 mg/dL: Very High CARDIAC RISK RATIO 4.0 3.4 - 5.0 C [facility] Blood 01/11/2021 5:19 AM EDT 01/11/2021 6:50 AM EDT Perry Chavez PA-C LAB BLOOD BKR ORDERABLES Cynthia l Result Performing Organization Address [facility] [place]/[facility] Co de Phone Number [address] [address] from Last 3 Months or Most Recently Relevant to Health Maintenance Insurance [facility] SAFETY NET FULL MEDICARE A Member Subscriber Plan / Payer (Ef fective 2017-Present) Name:LolyMayco contreras Member ID:[id number] Relation to Subscriber:Self Name:Lolyben Mayco Subscriber ID:[id number] Payer ID:[id number] Group ID:Not on file Type:Medicare Address: [employer] [facility] [address] [address] [place] [address] [facility] SAFETY NET FULL [place]IC[place] [address] [address] Member Subscriber Plan / Payer (Ef fective 2019-Present) Name:Umesh Ortizdy Relation to Subscriber:Self Name:Diana Mayco Payer ID:[id number] (NAIC) Group ID:Not on file Type:Indemnity Address: [facility] [address] FULL MEDICARE A [facility] Member Subscriber Plan / Payer (Ef fective 2019-Present) Name:Mayco Ortiz Relation to Subscriber:Self Name:Mayco Ortiz Payer ID:[id number] (NAIC) Group ID:Not on file Type:Indemnity Address: [facility] [employer] [id number] FULL MEDICARE A [facility]WORK HEALTH SAFETY NET FULL MEDICARE A COMMUNITY [facility] HEALTH SAFETY NET FULL MEDICARE [facility] Address: [facility] [id number] [place] [address] [place] [address] [place] [address] SAFETY NET FULL [place]IC[place] [address] [address] HEALTH SAFETY NET FULL MEDICARE A Advance Directives For more information, please contact: [phone] (9AM - 5PM [facility], Saturday-Saturday) * Full Code (Latest Code Status on File) Date Activated Date Inactivated Comments 01/10/2021 7:23 PM Question Answer Comments Code Status Confirmed With: Patient * Full Code (Confirmed) Date Activated Date Inactivated Comments 06/03/2019 9:43 PM 06/06/2019 2:48 PM Question Answer Comments Code Status Confirmed With: Patient Code Status Communicated To: Inpatient Attending Care Teams Hair Cutter Relationship Specialty Start Date End Date Yosi Handy PA [address] [place] [id number] PCP - General 06/03/19 Additional Source Comments The information contained in this document represents components of the legal health record. It is not the complete legal health record.[facility]
--- OUTSIDE RECORDS SUMMARY | 2025-05-03 14:16 | XMS_ITS | Encounter Summary ---
Author Organization [facility] Address [address] [facility] [address] [place] [address] Phone Care Team Providers Care Mine Foreman Name Role Phone Yosi Handy Primary Care Provider +1- [phone] Encounter Details Date Type Department Care Team (Late st Contact Info) Description 01/11/2021 Procedure Pass Non-Invasive Cardiology [address] [place] [address] Social History Tobacco Use Types Packs/Day Years [...] PM EST documented as of this encounter Plan of Treatment Not on file documented as of this encounter Visit Diagnoses Not on filedocumented in this encounter Care Teams Mine Foreman Relationship Specialty Start Date End Date Yosi Handy PA [address] [place] [address] PCP - General 06/03/19 documented as of this encounter Additional Source Comments The information contained in this document represents components of the legal health record. It is not the complete legal health record.[facility]
--- OUTSIDE RECORDS SUMMARY | 2025-05-03 14:16 | XMS_ITS | Clinical Summary ---
Author Organization [facility] Address [address] [facility] [address] [place] [address] Care Team Providers Care Tie Buyer Name Role Phone Unavailable Primary Care Provider Unavailabl e Allergies Active Allergy Reactions Criticality Noted Date Comments Iodinated Contrast Media Itching 09/11/2013 Iodine 02/21/2024 Medications Adalimumab-bwwd 40 MG/0.8ML solution auto-injector Inject under the skin. 4 Active albuterol 108 (90 Base) MCG/ACT inhaler Inhale. 5 Active amLODIPine (Norvasc) 5 MG tablet Take 5 mg by mouth Once per day. 1 Active Aspirin 81 MG capsule Take 81 mg by mouth. 2 Active atorvastatin (Lipitor) 80 MG tablet See Instructions, 1 tablet By Mouth Daily, 5 Refills, Maintenance, 12/02/23 16:18:00 EDT, Tablet, Partial fill upon patient request if the prescription is for a schedule II opioid drug. 4 Active buPROPion XL (Wellbutrin XL) 300 MG 24 hr tablet Take 300 mg by mouth Once per day. 5 Active fluticasone (Flonase) 50 MCG/ACT nasal spray Administer into affected nostril(s). 5 Active morphine CR (MS Contin) 15 MG 12 hr tablet Take 15 mg by mouth. 5 Active oxyCODONE (Roxicodone) 5 MG immediate release tablet Take 5 mg by mouth. 4 Active topiramate (Topamax) 200 MG tablet Take 200 mg by mouth. Active venlafaxine XR (Effexor XR) 150 MG 24 hr tablet Take 150 mg by mouth Once per day. Active Active Problems No known active problems Encounters Date Type Department Care Team Description 04/22/2025 Telephone [facility] [address] [place] [address] Win Dorman from Last 3 Months Social History Tobacco Use Types Packs/Day Years Used Date Smoking Tobacco: Every Day Cigarettes Passive Smoke Exposure: Never Smokeless Tobacco: Never Tobacco Cessation:Ready to Q uit: Not Asked; Counseling Given: Not Answered Alcohol Use Standard Drinks/Week Comments Not Currently 0 (1 standard drink = 0.6 oz pur e alcohol) Sex and Gender Information Value Date Recorded Sex Assigned at Male 04/30/2022 10:16 AM EDT Legal Sex Male 10:16 AM EDT Gender Identity Male 04/30/2022 10:16 AM EDT Sexual Orientation Straight 04/30/2022 10 :16 AM EDT Last Filed Vital Signs Vital Sign Reading Time Taken Comments Blood Pressure 114/64 11/24/2024 2:10 PM EDT Pulse 65 11/24/2024 2:10 PM EDT Temperature - - Respiratory Rate - - Oxygen Saturation - - Inhaled Oxygen Concentration - - Weight - - Height - - Body Mass Index - - Plan of Treatment Upcoming Encounters Date Type Department Care Team (Late st Contact Info) Description 06/01/2025 1:30 PM EST Office Visit [facility] [address] [place] [address] Win Dorman Health Maintenance Due Date Last Done Comments CT Colonography 1952 Colonoscopy 1952 Colorectal Cancer Screening 1952 Dental X-Ray: Full Mouth 1952 Depression Screening 1952 FIT DNA/Cologuard 1952 FIT 1952 FOBT 1952 Lipid Panel 1952 SDOH Screening 1952 Sigmoidoscopy 1952 Alcohol/Substance Use Screening 1964 Hepatitis C Screening 1970 Hepatitis A Vaccines (1 of 2 - Risk 2-dose series) 09/09/1971 Hepatitis B Vaccines (1 of 3 - Risk 3-dose series) 2012 RSV Patients and Patients Aged 60 years or older (1 - Risk 60-74 years 1-dose series) 2012 Dental Oral Exam 04/03/2024 10/02/2023, 03/2022, 01/04/2021, Additional history exists Dental X-Ray: Bitewings 02/21/2025 02/21/20, 12/19/2023, 12/05/2023 COVID-19 Vaccine ( season) 2025 10/18/2021, 06/06/2021, 09/10/2020, Additional history exists Influenza Vaccine (#1) 2025 , 05/02/2022, 04/05/2022, Additional history exists Dental Prophylaxis 05/28/2025 11/24/2024, 1 07/26/2023, 10/02/2023, Additional history exists Tobacco Screening 11/24/2025 11/24/2024 DTaP/Tdap/Td Vaccines (3 - Td or Tdap) 03/03/2031 03/03/2021, 11/13/2010 Pneumococcal Vaccine: 50+ Years Completed 05/23/2018, 08/01/2015, 11/13/2010, Additional history exists Zoster Vaccines Completed 01/26/2020, 08/06/2019 HIB Vaccines Aged Out No longer eligi ble based on patient's age to complete this topic HPV Vaccines Aged Out No longer eligi ble based on patient's age to complete this topic IPV Vaccines Aged Out No longer eligi ble based on patient's age to complete this topic Meningococcal B Vaccine Aged Out No l onger eligible based on patient's age to complete this topic Meningococcal Vaccine Aged Out No lisa daryn eligible based on patient's age to complete this topic RSV under 20 months Aged Out No longe r eligible based on patient's age to complete this topic Rotavirus Vaccines Aged Out No longer eligible based on patient's age to complete this topic Procedures Procedure Name Priority Date/Time Associated Diagnosis Comments PROPHYLAXIS - ADULT Routine 11/24/2024 2 :00 PM EDT BITEWING - SINGLE RADIOGRAPHIC IMAGE Routine 02/21/2024 8:30 AM EDT PERIODIC ORAL EVALUATION - ESTABLISHED PATIENT Routine 10/02/2023 3:00 PM EDT from Last 3 Months or Most Recently Relevant to Health Maintenance Insurance DENTAL - [employer]
--- OUTSIDE RECORDS SUMMARY | 2025-05-03 14:16 | XMS_ITS | Encounter Summary ---
Author Organization [facility] Address [address] [facility] [address] [place] [address] Phone Care Team Providers Care Sales Account Leader Name Role Phone Yosi Handy Primary Care Provider +1- [phone] Encounter Details Date Type Department Care Team (Late st Contact Info) Description 01/10/2021 Procedure Pass [facility], [address] [address] Social History Tobacco Use Types Packs/Day Years [...] 2:18 PM EDT Efren Thompson CNP * [place] Suicide Severity Rating Scale (Screener/Recent Self-Report) Question [...] on filedocumented in this encounter Care Teams Sales Account Leader Relationship Specialty Start Date End Date Yosi Handy PA [address] [place] [id number] PCP - General 06/03/19 documented as of this encounter Additional Source Comments The information contained in this document represents components of the legal health record. It is not the complete legal health record.[facility]
--- OUTSIDE RECORDS SUMMARY | 2025-05-03 14:16 | XMS_ITS | Encounter Summary ---
Author Organization [facility] Address [address] [facility] [address] [place] [address] Phone Care Team Providers Care Casing Grader Name Role Phone Yosi Handy Primary Care Provider +1- [phone] Encounter Details Date Type Department Care Team (Late st Contact Info) Description 01/10/2021 Procedure Pass [facility], Ct Scan - [address] [address] Social History Tobacco Use Types Packs/Day Years [...] 2:18 PM EDT Efren Thompson CNP * [place] Suicide Severity Rating Scale (Screener/Recent Self-Report) Question [...] on filedocumented in this encounter Care Teams Casing Grader Relationship Specialty Start Date End Date Yosi Handy PA [address] [place] [address] PCP - General 06/03/19 documented as of this encounter Additional Source Comments The information contained in this document represents components of the legal health record. It is not the complete legal health record.[facility]
--- OUTSIDE RECORDS SUMMARY | 2025-05-03 14:17 | XMS_ITS | Patient Health Record ---
Author Organization [facility] Address [address] [facility] [place] [address] Care Team Providers Care Licensed Vocational Nurse Name Role Phone Yosi Handy Primary Care Provider Malika e Ismael Camilo Jr Unavailable Allergies No Known Allergies Reason For Referral Referring Provider First Name Yosi Referring Provider Last Name Handy Referred Organization [facility] Referred Provider Ismael Camilo Jr Referred Address [address],[place], [place],[address],[place] Referred Provider Specialty Gastroentero logy General Notes faxed request to ct for authorization request on 09-30-2024 Referral Priority Routine Referring Provider First Name Yosi Referring Provider Last Name Handy Referred Organization [facility] Referred Provider Ismael Camilo Jr Referred Address [address] [place] [address],[facility],[place], [place],[address],[place] Referred Provider Specialty Gastroentero logy Referral Priority Routine Medications Medication SIG (Take, Route, Frequency, Duration) Notes Start Date End Date Status predniSONE 10 MG 4 tablets daily for 7 days then taper by 10 mg weekly. Orally Once a day; Duration: 30 days 04/14/2025 Active Creon 20 66.4-20-75 MU as directed Orally Active Humira Pen 40 MG/0.8ML 1 injection Subcutaneous every 2 weeks; Duration: 30 days 09/16/2020 Active azaTHIOprine Active Vitamin B-1 100 MG 1 tablet Orally Once a day; Duration: 30 day(s) Active Multivitamin & Mineral - as directed Orally Active Carboxymethylcellulose Sodium Unknown Clopidogrel Bisulfate 75 MG 1 tablet Ora lly Once a day; Duration: 30 day(s) Active Atorvastatin Calcium 80 MG 1 tablet Oral ly Once a day; Duration: 30 day(s) Active amLODIPine Besy-Benazepril H Cl 5-10 MG as directed Orally Active Aspir-Low 81 MG 1 tablet Orally Once a day; Duration: 30 day(s) Active Fluticasone Propionate 93 MCG/ACT 1 spray in each nostril Nasally NEEDED Active Sildenafil Citrate 50 MG 1 tablet as nee ded Orally Once a day Active Folic Acid 1 MG 1 tablet Orally Once a day; Duration: 30 day(s) Active Symbicort Active Immunizations Vaccine Route Administration Date Status Comme nts Influenza Unknown 04/10/2018 Administered Influenza Unknown 03/01/2019 Administered Influenza Unknown 03/31/2021 Administered Influenza Unknown 05/02/2022 Administered Influenza Unknown 08/04/2020 Refused Influenza Unknown 05/01/2023 Refused Influenza Unknown 10/28/2024 Refused Influenza Unknown 04/14/2025 Refused Social History Tobacco Use: Social History Observation Description Date Details (start date - stop date) Current Smoker NA - NA Tobacco Use/Smoking Question Answer Notes Patient is a current smoker AUDIT-C (Standard) Question Answer Notes Did you have a drink containing alcohol in the p ast year? No Points 0 Interpretation Negative Problems Problem Type SNOMED Code ICD Code Onset Dates Problem Status W/U Status Risk Notes Problem Crohn's disease of large bowel (0357325) Crohn's disease of large intestine without complications (K50.10) Active confirmed Problem Crohn's disease of colon (05022585) Crohn's disease of colon (K50.10) Active confirmed Problem Family History of Cancer of Colon (Situation) (619645938) Family history of colon cancer (Z80.0) Active confirmed Problem Chronic pancreatitis (655018433) Chronic pancreatitis, unspecified pancreatitis type (K86.1) Active confirmed Problem Rash (622138485) Rash (R21) Active confirmed Vital Signs Temperature 97.5 degrees Fahrenheit 04/14/2025 Blood pressure diastolic 01 mm Hg 04/14/2025 Height 66 in 04/14/2025 Blood pressure systolic 001 mm Hg 04/14/2025 Weight 154.6 lbs 04/14/2025 BMI 24.95 kg/m2 04/14/2025 Encounters Encounter Location Date Provider Diagnosis [facility] [address] [facility] [place] [id number] 10/28/2024 Ismael Camilo Jr Crohn's disease of large intestine without complications K50.10 ; Chronic pancreatitis, unspecified pancreatitis type K86.1 and Rash R21 [facility] [address] [place] [address] 04/14/2025 Ismael Camilo Jr Crohn's disease of large intestine without complications K50.10 and Chronic pancreatitis, unspecified pancreatitis type K86.1 [facility] [address] [place] [address] 10/29/2024 Ismael Camilo Jr Assessments Encounter Date Diagnosis (ICD Code) Assessment Notes Treatment Notes Treatment Clinical Notes Section Notes 10/28/2024 Crohn's disease of large intestine without complications (ICD-10 - K50.10) We discussed Crohn's disease today. We recommend that he continue his present regimen. For his rash, he could follow-up with his primary care provider. He will follow-up in this office in 6 months. If he has problems with an exacerbation of Crohn's disease, he is advised to call. We discussed the long-term safety of Humira. 04/14/2025 Crohn's disease of large intestine without complications (ICD-10 - K50.10) We discussed his symptoms today. We recommended a course of prednisone for possible exacerbation of his Crohn's disease. He will start 40 mg daily and taper by 10 mg weekly. If his symptoms persist, stool studies will be obtained He is due for colonoscopy because of his history of polyps and longstanding history of Crohn's disease as well as his family history in his father. We discussed the procedure in detail today including risks and benefits. He understands these and agrees to proceed. He is advised to stop aspirin and clopidogrel 1 week before the procedure. He appears stable with respect to his chronic pancreatitis and will continue enzyme supplementation . 10/28/2024 Chronic pancreatitis, unspecified pancreatitis type (ICD-10 - K86.1) We discussed Crohn's disease today. We recommend that he continue his present regimen. For his rash, he could follow-up with his primary care provider. He will follow-up in this office in 6 months. If he has problems with an exacerbation of Crohn's disease, he is advised to call. We discussed the long-term safety of Humira. 04/14/2025 Chronic pancreatitis, unspecified pancreatitis type (ICD-10 - K86.1) We discussed his symptoms today. We recommended a course of prednisone for possible exacerbation of his Crohn's disease. He will start 40 mg daily and taper by 10 mg weekly. If his symptoms persist, stool studies will be obtained He is due for colonoscopy because of his history of polyps and longstanding history of Crohn's disease as well as his family history in his father. We discussed the procedure in detail today including risks and benefits. He understands these and agrees to proceed. He is advised to stop aspirin and clopidogrel 1 week before the procedure. He appears stable with respect to his chronic pancreatitis and will continue enzyme supplementation . 10/28/2024 Rash (ICD-10 - R21) We discussed Crohn's disease today. We recommend that he continue his present regimen. For his rash, he could follow-up with his primary care provider. He will follow-up in this office in 6 months. If he has problems with an exacerbation of Crohn's disease, he is advised to call. We discussed the long-term safety of Humira. Plan Of Treatment Pending Test Test Name Order Date LIVER PROFILE 09/11/2018 LIVER PROFILE 04/03/2019 LIVER PROFILE 12/17/2019 LIPASE 09/11/2018 LIPASE 04/03/2019 LIPASE 12/17/2019 CBC w DIFF 12/17/2019 CBC w DIFF 01/14/2020 CBC w DIFF 04/03/2019 CBC w/o DIFF 09/11/2018 PROMETHEUS THIOPURINE METABOLITES (TPMT) 12/17/2019 PROMETHEUS THIOPURINE METABOLITES (TPMT) 01/14/2020 PROMETHEUS THIOPURINE METABOLITES (TPMT) 09/11/2018 PROMETHEUS TPMT ENZYME 09/11/2018 PROMETHEUS TPMT GENETICS 09/11/2018 Future Test Test Name Order Date COLONOSCOPY 09/28/2015 COLONOSCOPY 12/20/2016 COLONOSCOPY 03/12/2019 COLONOSCOPY 05/09/2022 COLONOSCOPY 04/14/2025 Next Appt Details Provider Name:Ismael dolan Jr, 05/05/2025 01:50:00 PM, [address] [place] [address] , [place], [place], [id number], Insurance Providers Payer Name Payer Address Payer Phone Subscriber Number Group Number Insured Name Patient Relationship to Insured Coverage Start Date Coverage End Date [place] [employer] [address] [place] [address] [phone] [id number] SAVAGEDY Self - patient is the insured Medical (General) History Medical History History ICD Code hypertension emphysema hyperhidrosis hypogonadism COPD plantar fibromatosis chronic sinusitis Crohn's disease, most recent colonoscopy 05/22, inactive disease on biopsy in ileum and rectum, tubular adenomas x2, three-year followup.. Diagnosis 2003, previously seen at the [facility] with reported involvement of the entire colon and terminal ileum. Previously treated with mesalamine/5-ASA medications, current therapy is Humira (started 01/13/21) and azathioprine. 05/22, not taking azathioprine, unclear when it was stopped. 05/23 reports restarting azathioprine 8 months ago, continues on Humira. depression back pain opiate dependence pneumonia 06/18 stroke/TIA December 2020 Latent tuberculosis status post treatmen t with Dr. Garzon pancreatitis Surgical History Surgery Date(Month/Year) left lower lobe resection for emphysema 1996 Hospitalization History Reason Date(Month/Year) Pancreatitis, [facility], inpatient x4 day s 04/21 CVA 2020
[2025-05-03 14:18] VITALS: BMI 24.9
--- NOTE | 2025-05-05 12:22 | MHC.SHP ---
Pre-Procedural Eval Section A - 24 Hr Update-Section A only Date of Service: 05/05/25 The patient is an INPATIENT: No Changes since office visit: No Cold of Flu in the past 2 weeks, No New Medical Problems, No Changes in Medication and No Patient answered all questions The patient has been examined within 24 hours of the surgical procedure. The History & Physical has been completed within 30 days and I have reviewed it.: Yes Section B - Complete if H&P > 30 days Chief Complaint: Crohn's disease of large intestine without complic Allergies: Allergies Allergy/AdvReac Type Severity Reaction Status Date / Time Iodinated Contrast Media (IV Allergy Hives Verified 08/12/21 14:11 Contrast Dye) Plan I have reviewed the history and physical and performed a pertinent physical examination on my patient. No changes have occurred unless specified. Time Spent With Patient Time: Total time managing care of this patient today ____ minutes.
[2025-05-05 13:11] VITALS: BMI 24.8
[2025-05-05 13:37] VITALS: BP 120/81; PULSE 106; RESP 15; TEMP 36.7; O2SAT 98
[2025-05-05] MEDS: Lactated Ringers 1,000 ML 100 ML IVCONT (13:39)
[2025-05-05 14:28] VITALS: BP 126/83; PULSE 77; RESP 16; TEMP 36.3; O2SAT 97
[2025-05-05 14:43] VITALS: BP 124/80; PULSE 87; RESP 16; TEMP 36.6; O2SAT 98
--- NOTE | 2025-05-05 23:03 | OP_ITS ---
DATE OF SERVICE: 05/05/2025 SURGEON: Ismael Camilo MD INDICATIONS: Crohn disease and personal history of colon polyps. PREOPERATIVE DIAGNOSIS: POSTOPERATIVE DIAGNOSIS: PROCEDURE PERFORMED: Colonoscopy to the terminal ileum with biopsy and snare polypectomy. ESTIMATED BLOOD LOSS: COMPLICATIONS: ANESTHESIA: Monitored anesthesia care. ASSISTANTS: SPECIMENS: DESCRIPTION OF PROCEDURE: A history and physical was performed. The risks and benefits of the procedure were explained to the patient, and informed consent was obtained. The patient was placed in the left lateral decubitus position. A digital rectal exam was performed and was found to be normal. The Olympus pediatric video colonoscope was introduced into the rectum and advanced to the cecum. The cecum was identified by transillumination, palpation, and identification of ileocecal valve. Examination was performed. The scope was removed. He tolerated the procedure well in stable condition. FINDINGS: The terminal ileum was examined and appeared normal. This was biopsied. Biopsies were obtained from throughout the colon, which showed no evidence of active Crohn disease. There was some mild nonspecific erythema involving the rectum. Multiple polyps were identified. One in the cecum was removed with a hot snare measuring 8 mm. This could not be recovered due to technical reasons. Other polyps were identified and removed with a snare in the right colon, left colon at 65 cm and at 60 cm. The largest measured approximately 10 mm and was recovered via suction. No other polyps were identified. Retroflexed examination showed moderate-sized internal hemorrhoids. IMPRESSION: Colon polyps, Crohn disease. RECOMMENDATION: Follow up the biopsy results. MD CRYSTAL Cui/MODL / [id number]
== END 2025-05-05 15:06 | disposition home or self-care (01) ==
PROVIDERS: PCP Physician Assistant Medical; Visit Provider Internal Medicine Gastroenterology
PROC: 0DJD8ZZ Inspection of Lower Intestinal Tract, Via Natural or Artificial Opening Endoscopic (ICD-10-PCS; CPT 45378; principal; 2025-05-05 13:50)
DX: K50.10 Crohn's disease of large intestine without complications (principal); Z86.0101 Personal history of adenomatous and serrated colon polyps; D12.2 Benign neoplasm of ascending colon; D12.4 Benign neoplasm of descending colon; K64.8 Other hemorrhoids; K85.90 Acute pancreatitis without necrosis or infection, unspecified; I10 Essential (primary) hypertension; Z90.2 Acquired absence of lung [part of]; Z87.01 Personal history of pneumonia (recurrent); Z22.7 Latent tuberculosis; J32.9 Chronic sinusitis, unspecified; J44.9 Chronic obstructive pulmonary disease, unspecified; E29.1 Testicular hypofunction; R61 Generalized hyperhidrosis; Z79.51 Long term (current) use of inhaled steroids; Z79.620 Long term (current) use of immunosuppressive biologic; Z86.73 Personal history of transient ischemic attack (TIA), and cerebral infarction without residual deficits; Z79.891 Long term (current) use of opiate analgesic; Z79.899 Other long term (current) drug therapy; F17.210 Nicotine dependence, cigarettes, uncomplicated; Z98.890 Other specified postprocedural states
CPT/HCPCS: 45385; 45380; 88305; J2704